=== PATIENT | male | born 1940 | race Caucasian/White ===

== ENCOUNTER 2022-06-20 20:28 | Observation (INO) ==
--- NOTE | 2022-06-20 20:51 | DR.GENAD ---
HPI Time Seen Time Seen by Provider: 06/20/22 20:51 HPI Comment HPI Comment: PATIENT IS 81YR OLD MALE IN ER WITH FAMILY MEMBERS COMPLAINING OF MENTAL STATUS CHANGES THAT STARTED TODAY. PATIENT HAVE HISTORY OF BRAIN CA COMPLITED RADIATION THERAPY IN MARCH. HAVING ABDOMINAL PAIN ON AND OFF THAT IS SEVERE TODAY. NO FEVER, VOMITING OR DIARRHEA. PATIENT IS HAD BM TODAY. Complaint/Symptoms Chief Complaint Doctors Comments: MENTAL STATUS CHANGES TIMES FEW HOURS. HE IS CONFUSED AND AGITATED. COVID-19 Coronavirus risk:travel/contact w/high risk person: No Has patient experienced Coronavirus symptoms: No Nurses notes reviewed Nurses Notes Review: Yes PMH PMH Past Surgical History: Yes ROS Review of Systems Constitutional: Weakness, Fatigue, Loss of Appetite and Other (INSOMNIA.); negative Fever Eyes: No Symptoms Reported; negative See HPI ENTM: No Symptoms Reported; negative Nose Discharge or Nose Congestion Respiratoy: No Symptoms Reported; negative Moist Cough, Short of Breath or Wheezing Cardiovascular: No Symptoms Reported; negative Chest Pain Gastrointestinal/Abdominal: negative Abdominal Pain, Diarrhea or Vomiting Genitourinary: No Symptoms Reported; negative Dysuria Neurological: Headache; negative Dizziness Musculoskeletal: No Symptoms Reported Integumentary: No Symptoms Reported; negative Rash or Juandice Hematologic/Lymphatic: No Symptoms Reported and Easy Bruising Endocrine: No Symptoms Reported; negative Increased Thirst or Increased Urine Psychiatric: Other (AGITATED.) All Other Systems: Reviewed and Negative PE Vital Signs Vitals: Temperature 98.5 F Pulse Rate 99 Respiratory Rate 33 Blood Pressure 208/97 O2 Sat by Pulse Oximetry 100 General Limitations: Altered Mental Status General Appearance: Alert and In No Apparent Distress Head Head Exam: Normal Inspection and Atraumatic Eyes Eye exam: Normal Appearance and PERRL; negative Scleral Icterus or Conjunctival Injection ENT ENT Exam: Normal Exam, Normal Oropharynx, Normal External Ear Exam and TM's Normal Bilaterally External Ear Exam: Normal External Inspection; negative Mastoid Tenderness TM/Canal Exam: Bilateral: Normal Nose Exam: Normal Nose Exam Mouth Exam: negative Lip Swelling or Tongue Swelling Throat Exam: Normal Inspection, Tonsillar Erythema, Tonsillomegaly and L Peritonsillar Mass Neck Neck Exam: Normal Inspection and Trachea Midline; negative Tenderness Chest Chest Inspection: Normal Inspection and Symmetric Chest Wall Rise; negative Tenderness Respiratory Respiratory Exam: Normal Lung Sounds Bilat; negative Accessory Muscle Use, Chest Wall Tenderness or Respiratory Distress Respiratory Exam: Bilateral: Rhonchi Cardiovascular Cardiovascular Exam: Regular Rate, Normal Rhythm and Normal Heart Sounds; negative Systolic Murmur or Diastolic Murmur Abdominal Exam Abdominal Exam: Normal Inspection, Normal Bowel Sounds and Soft; negative Tenderness Extremities Extremities Exam: Normal Inspection and Normal Capillary Refill Back Back Exam: Normal Inspection; negative (R) CVA Tenderness or (L) CVA Tenderness Neurologic Neurological Exam: Alert; negative Oriented X3 (CONFUSED.) or Motor Sensory Deficit Psychiatric Psychiatric Exam: Agitated Skin Skin Exam: Intact MDM Additional Information Additional Information Obtained From: Family Differential Diagnosis Differential Diagnosis: AMS, HYPERTENSION, INSOMNIA, AGITATION, HISTORY BRAIN CANCER. COURSE Treatment Treatment: SEE ORDERS DONE WHILE PATIENT WAS IN ER. Consultation Consultation Comments: DISCUSSED PATIENT WITH DR. REDMAN. HE WILL ADMIT PATIENT. Education/Counseling Education/Counseling: Patient and Family Educated On: Diagnosis ROR Labs Reviewed Laboratory Results Reviewed?: Yes Result Diagrams: 06/22/22 04:38 06/22/22 10:40 Laboratory: 06/20/22 21:50 Blood Blood Culture - Preliminary 06/20/22 21:06 Blood Blood Culture - Preliminary WBC 7.9 X10^3/uL (3.6-10.0) 06/20/22 21:06 RBC 4.24 X10^6/uL (4.7-6.0) L 06/20/22 21:06 Hgb 13.3 g/dL (13.5-18.0) L 06/20/22 21:06 Hct 38.2 % (42.0-54.0) L 06/20/22 21:06 MCV 89.9 fL (80.0-100.0) 06/20/22 21:06 MCH 31.4 pg (27.0-34.0) 06/20/22 21:06 MCHC 34.9 g/dL (33.0-35.0) 06/20/22 21:06 RDW 16.4 % (11.6-16.5) 06/20/22 21:06 Plt Count 163 X10^3/uL (150.0-450.0) 06/20/22 21:06 MPV 7.2 fL (7.4-11.0) L 06/20/22 21:06 Neut % (Auto) 67.7 % (42.0-75.0) 06/20/22 21:06 Lymph % (Auto) 19.4 % (21.0-51.0) L 06/20/22 21:06 [place] % (Auto) 10.9 % (0.0-13.0) 06/20/22 21:06 Eos % (Auto) 1.3 % (0.9-2.9) 06/20/22 21:06 Baso % (Auto) 0.7 % (0.2-1.0) 06/20/22 21:06 Neut # (Auto) 5.4 x10^3/uL (2.2-4.8) H 06/20/22 21:06 Lymph # (Auto) 1.5 X10^3/uL (1.3-2.9) 06/20/22 21:06 Donley # (Auto) 0.9 x10^3/uL (0.3-0.8) H 06/20/22 21:06 Eos # (Auto) 0.1 x10^3/uL (0.0-0.2) 06/20/22 21:06 Baso # (Auto) 0.1 X10^3/uL (0.0-0.1) 06/20/22 21:06 Absolute Nucleated RBC 0.0 /100WBC 06/20/22 21:06 PT 14.9 SECONDS (11.8-14.3) 06/20/22 21:06 INR Target Range - 06/20/22 21:06 INR 1.20 (0.8-1.3) 06/20/22 21:06 APTT 29.0 SECONDS (22.9-36.5) 06/20/22 21:06 PTT Comment - 06/20/22 21:06 Sodium 135 mmol/L (136-145) L 06/20/22 21:06 Corrected Sodium TNP 06/20/22 21:06 Potassium 3.5 mmol/L (3.5-5.1) 06/20/22 21:06 Chloride 100 mmol/L (98-107) 06/20/22 21:06 Carbon Dioxide 26.8 mmol/L (21-32) 06/20/22 21:06 BUN 6 mg/dL (7-18) L 06/20/22 21:06 Creatinine 1.01 mg/dL (0.70-1.30) 06/20/22 21:06 Est GFR (MDRD) Af Amer > 60 (>60) 06/20/22 21:06 Est GFR (MDRD) Non-Af > 60 (>60) 06/20/22 21:06 Glucose 102 mg/dL (65-99) H 06/20/22 21:06 Calcium 8.4 mg/dL (8.5-10.1) L 06/20/22 21:06 Corrected Calcium TNP 06/20/22 21:06 Total Bilirubin 0.80 mg/dL (0.2-1.0) 06/20/22 21:06 AST 18 Units/L (15-37) 06/20/22 21:06 ALT 16 Units/L (12-78) 06/20/22 21:06 Alkaline Phosphatase 81 Units/L (46-116) 06/20/22 21:06 Ammonia < 10 umol/L (11-32) L 06/20/22 21:06 Creatine Kinase 135 Units/L (39-308) 06/20/22 21:06 Troponin I High Sens 9.5 ng/L (4.0-60.0) 06/20/22 21:06 Total Protein 6.4 g/dL (6.4-8.2) 06/20/22 21:06 Albumin 3.7 g/dL (3.4-5.0) 06/20/22 21:06 Globulin 2.7 g/dL (2.5-4.5) 06/20/22 21:06 Albumin/Globulin Ratio 1.4 Ratio (1.1-2.1) 06/20/22 21:06 Specimen Type Clean catch urine 06/20/22 21:17 Urine Color Pale yellow (YELLOW) 06/20/22 21:17 Urine Appearance Clear (CLEAR) 06/20/22 21:17 Urine pH 7.0 (5.0 - 8.0) 06/20/22 21:17 Ur Specific [place] 1.010 (1.000-1.030) 06/20/22 21:17 Urine Protein Negative (NEGATIVE) 06/20/22 21:17 Urine Glucose (UA) Negative (NEGATIVE) 06/20/22 21:17 Urine Ketones Negative (NEGATIVE) 06/20/22 21:17 Urine Blood Negative (NEGATIVE) 06/20/22 21:17 Urine Nitrite Negative (NEGATIVE) 06/20/22 21:17 Urine Bilirubin Negative (NEGATIVE) 06/20/22 21:17 Urine Urobilinogen 1+ (NORMAL) 06/20/22 21:17 Ur Leukocyte Esterase Negative (NEGATIVE) 06/20/22 21:17 Urine RBC None seen /HPF (0-3) 06/20/22 21:17 Urine WBC None seen /HPF (0-5) 06/20/22 21:17 Ur Squamous Epith Cells Rare /HPF (NEGATIVE) 06/20/22 21:17 Urine Bacteria Negative /HPF (NEGATIVE) 06/20/22 21:17 Ur Culture Indicated? No/not indicated 06/20/22 21:17 Urine Opiates Screen Negative (NEG=<300) 06/20/22 21:17 Urine Methadone Screen Negative (NEG=<300) 06/20/22 21:17 Ur Barbiturates Screen Negative (NEG=<200) 06/20/22 21:17 Ur Phencyclidine Scrn Negative (NEG=<25) 06/20/22 21:17 Ur Amphetamines Screen Negative (NEG=<1000) 06/20/22 21:17 U Benzodiazepines Scrn Positive (NEG=<200) 06/20/22 21:17 Urine Cocaine Screen Negative (NEG=<300) 06/20/22 21:17 U Marijuana (THC) Screen Negative (NEG=<50) 06/20/22 21:17 Ethyl Alcohol mg/dL Cancelled 06/20/22 21:06 XRAY XRAY Interpreted by: Radiologist (REPORT NOTED) and Self Opioid Opioid Risk Tool Total: 0 Total Score Risk Category: Low Risk Copyright: Marko SHELLEY predicting aberrant behaviors Discharge Plan Diagnosis Discharge Problem: Altered mental state, Hypertension, Insomnia, Agitation, History of brain cancer Discharge Plan Patient Disposition: HOME, SELF-CARE Condition: Stable Orders to Discharge Patient Discharge Orders: Discharge (Routine); Ordered 06/22/22 Ordered By: ALMAZ RIVERA
[2022-06-20 20:59] VITALS: BMI 24.3
[2022-06-20 21:19] LABS: BASOPHILS # (AUTO) 0.1 X10^3/uL (0.0-0.1); BASOPHILS % (AUTO) 0.7 % (0.2-1.0); EOSINOPHILS # (AUTO) 0.1 x10^3/uL (0.0-0.2); EOSINOPHILS % (AUTO) 1.3 % (0.9-2.9); HEMATOCRIT 38.2 % (42.0-54.0); HEMOGLOBIN 13.3 g/dL (13.5-18.0); LYMPHOCYTES # (AUTO) 1.5 X10^3/uL (1.3-2.9); LYMPHOCYTES % (AUTO) 19.4 % (21.0-51.0); MEAN CORPUSCULAR HEMOGLOBIN 31.4 pg (27.0-34.0); MEAN CORPUSCULAR HGB CONC 34.9 g/dL (33.0-35.0); MEAN CORPUSCULAR VOLUME 89.9 fL (80.0-100.0); MEAN PLATELET VOLUME 7.2 fL (7.4-11.0); MONOCYTES # (AUTO) 0.9 x10^3/uL (0.3-0.8); MONOCYTES % (AUTO) 10.9 % (0.0-13.0); NEUTROPHILS # (AUTO) 5.4 x10^3/uL (2.2-4.8); NEUTROPHILS % (AUTO) 67.7 % (42.0-75.0); RED BLOOD COUNT 4.24 X10^6/uL (4.7-6.0); RED CELL DISTRIBUTION WIDTH 16.4 % (11.6-16.5); WHITE BLOOD COUNT 7.9 X10^3/uL (3.6-10.0)
[2022-06-20 21:27] LABS: BILIRUBIN,URINE NEGATIVE (NEGATIVE); BLOOD/HEMOGLOBIN,URINE NEGATIVE (NEGATIVE); GLUCOSE, URINE NEGATIVE (NEGATIVE); KETONES,URINE NEGATIVE (NEGATIVE); LEUKOCYTE ESTERASE ,URINE NEGATIVE (NEGATIVE); NITRITES,URINE NEGATIVE (NEGATIVE); PROTEIN,URINE NEGATIVE (NEGATIVE); UROBILINOGEN,URINE 1+ (NORMAL)
[2022-06-20 21:32] LABS: APPEARANCE,URINE CLEAR (CLEAR); COLOR,URINE PALE YELLOW (YELLOW)
[2022-06-20 21:33] LABS: BACTERIA,URINE NEGATIVE /HPF (NEGATIVE); RBC,URINE NONE SEEN /HPF (0-3); SQUAMOUS EPITHELIAL CELL,UR RARE /HPF (NEGATIVE)
[2022-06-20 21:34] LABS: ALANINE AMINOTRANSFERASE 16 Units/L (12-78); ALBUMIN 3.7 g/dL (3.4-5.0); ALKALINE PHOSPHATASE 81 Units/L (46-116); ASPARTATE AMINO TRANSFERASE 18 Units/L (15-37); BLOOD UREA NITROGEN 6 mg/dL (7-18); CALCIUM 8.4 mg/dL (8.5-10.1); CARBON DIOXIDE 26.8 mmol/L (21-32); CHLORIDE 100 mmol/L (98-107); CREATINE KINASE 135 Units/L (39-308); CREATININE 1.01 mg/dL (0.70-1.30); SODIUM 135 mmol/L (136-145); TOTAL PROTEIN 6.4 g/dL (6.4-8.2); eGFR NON BLACK RACES > 60 (>60)
--- NOTE | 2022-06-20 21:54 | CT ---
[id number] ago began having face, arm, leg weakness. Family states has a history of anxiety that presents with these symptoms. Family states he has an upset stomach. March pt had full brain radiation due to brain cancer.STUDYBRAIN W/O CONCOMPARISONMRI brain dated October 29, 2018 report, no images available for comparison at this time.TECHNIQUECT scan of the brain was obtained from skull base to vertex without contrast. Dose reduction techniques were utilized.Contrast: NoneFINDINGSThere is diffuse cerebral and cerebellar volume loss. There is a small rounded hyperdensity seen within the right posterior parietal lobe noted medially measuring approximately 4.6 mm. This may represent mineralization or dystrophic calcification. Less likely this could represent a small focus of intraparenchymal hemorrhage. This is less favored. There is mild hypodensity in the hemispheric white matter. While these are nonspecific findings, this most likely represents microvascular ischemic disease changes. There is no evidence of intracranial hemorrhage or mass-effect. No extra-axial fluid collections are identified.There are extensive atherosclerotic changes noted of the cavernous carotid arteriesand distal vertebral arteries.Skull base and calvarium are intact. Paranasal sinuses reveals a retention cyst versus polyp within the right maxillary sinus.IMPRESSIONSmall focus of hyperdensity within the right of midline parietal lobe measuring approximately 4.6 mm. This could represent dystrophic calcifications or mineralization from a previously treated small meningioma or calcification from a cavernous malformation versus a minimal amount of intraparenchymal hemorrhage (this is less favored). No mention of this finding was made on the previous MRI report dated October 29, 2018. Diffuse generalized cerebral atrophy. Microvascular ischemic disease changes.Electronically signed by: Soraya Reid (Jun 20, 2022 21:52:37)
--- NOTE | 2022-06-20 21:55 | RAD ---
[id number] ago began having face, arm, leg weakness. Family states has a history of anxiety that presents with these symptoms. family gave patient a 2.25mg xanax that relieved symptoms. Family states he has an upset stomach. March pt had TRUNCATED ...STUDYCHEST, 1 VIEWCOMPARISONNone.TECHNIQUEA single frontal view of the chest was obtained.FINDINGSThere are multiple EKG leads and wires seen overlying the patient. There is mild tortuosity to the descending thoracic aorta. The heart is normal in size. There is no focal infiltrate. There is no effusion. There is no pneumothorax. The osseous structures are intact.IMPRESSIONNo focal infiltrate or effusion.Electronically signed by: Soraya Reid (Jun 20, 2022 21:54:08)
--- NOTE | 2022-06-20 22:10 | CT ---
[id number] ago began having face, arm, leg weakness. Family states has a history of anxiety that presents with these symptoms. Family states he has an upset stomach. March had full brain radiation due to brain cancer.STUDYABDOMEN/PELVIS W/O CONCOMPARISONNoneTECHNIQUENon-contrasted axial CT images of the abdomen and pelvis were obtained and reformatted into coronal and sagittal planes for further evaluation.Radiation dose: 297.13 mGy-cm total DLPFINDINGSLung bases are clear.Tiny sliding type hiatal hernia.Stomach appears normal.Solid visceral organs of the upper abdomen are unremarkable.Gallbladder appears normal.No intra or extrahepatic biliary dilatation.Unremarkable appearance of the kidneys.No hydronephrosis, hydroureter or ureteral calculus.Unremarkable appearance of the urinary bladder.Colonic diverticulosis without diverticulitis.Otherwise, unremarkable appearance of the small and large bowel.Reproductive structures are unremarkable.No evidence of acute appendicitis.No pneumoperitoneum.No significant fluid collection.No adenopathy.No acute osseous abnormality.Multilevel [id number]-[id number] degenerative disc and joint changes.IMPRESSION1. No acute intra-abdominal abnormality detected.2. Colonic diverticulosis without diverticulitis.3. Tiny sliding type hiatal hernia.Electronically signed by: Dejon Concepcion (Jun 20, 2022 22:08:41)
[2022-06-20] MEDS ORDERED: ATIVAN INJ 2 MG VIAL IVP ONE (22:56)
[2022-06-20] MEDS ORDERED: APRESOLINE INJ 20 MG VIAL IVP ONE (22:56)
[2022-06-20] MEDS ORDERED: APRESOLINE INJ 20 MG VIAL ONE (22:58)
[2022-06-20] MEDS ORDERED: ATIVAN INJ 2 MG VIAL ONE (22:58)
[2022-06-20] MEDS ORDERED: FLONASE NASAL SPRAY ENOSTRIL SCH (23:45)
[2022-06-20] MEDS ORDERED: FLONASE NASAL SPRAY ENOSTRIL ONE (23:49)
[2022-06-21] MEDS: NS 1,000 ML IV 1,000 ML IV SCH ×2 (00:40→14:18)
[2022-06-21 05:29] LABS: BASOPHILS % (AUTO) 0.2 % (0.2-1.0); EOSINOPHILS # (AUTO) 0.1 x10^3/uL (0.0-0.2); EOSINOPHILS % (AUTO) 0.6 % (0.9-2.9); HEMATOCRIT 38.3 % (42.0-54.0); HEMOGLOBIN 13.5 g/dL (13.5-18.0); INR 1.22 (0.8-1.3); LYMPHOCYTES # (AUTO) 1.2 X10^3/uL (1.3-2.9); LYMPHOCYTES % (AUTO) 12.2 % (21.0-51.0); MEAN CORPUSCULAR HEMOGLOBIN 31.2 pg (27.0-34.0); MEAN CORPUSCULAR HGB CONC 35.3 g/dL (33.0-35.0); MEAN CORPUSCULAR VOLUME 88.4 fL (80.0-100.0); MEAN PLATELET VOLUME 7.5 fL (7.4-11.0); MONOCYTES % (AUTO) 10.7 % (0.0-13.0); NEUTROPHILS # (AUTO) 7.3 x10^3/uL (2.2-4.8); NEUTROPHILS % (AUTO) 76.3 % (42.0-75.0); RED BLOOD COUNT 4.34 X10^6/uL (4.7-6.0); RED CELL DISTRIBUTION WIDTH 16.2 % (11.6-16.5); WHITE BLOOD COUNT 9.5 X10^3/uL (3.6-10.0)
[2022-06-21] MEDS ORDERED: NORCO 5/325 MG TAB PO PRN (05:32)
[2022-06-21 05:45] LABS: ALANINE AMINOTRANSFERASE 15 Units/L (12-78); ALBUMIN 3.5 g/dL (3.4-5.0); ALKALINE PHOSPHATASE 75 Units/L (46-116); ASPARTATE AMINO TRANSFERASE 20 Units/L (15-37); BLOOD UREA NITROGEN 4 mg/dL (7-18); CALCIUM 8.4 mg/dL (8.5-10.1); CARBON DIOXIDE 26.4 mmol/L (21-32); CHLORIDE 100 mmol/L (98-107); CREATININE 0.81 mg/dL (0.70-1.30); MAGNESIUM 1.7 mg/dL (2.0-2.9); SODIUM 134 mmol/L (136-145); TOTAL PROTEIN 6.1 g/dL (6.4-8.2); eGFR NON BLACK RACES > 60 (>60)
[2022-06-21] MEDS ORDERED: K-RIDER 10 MEQ/NS 100 ML 10 MEQ/100 ML BAG IV PRN (07:50)
[2022-06-21] MEDS ORDERED: POTASSIUM CHLORIDE LIQ 20 MEQ UDC PO PRN (07:50)
[2022-06-21] MEDS ORDERED: POTASSIUM CHL 60 MEQ/NS 0.45% 500 ML IV PRN (07:50)
[2022-06-21] MEDS ORDERED: POTASSIUM CHL 40 MEQ/NS 0.45% 500 ML IV PRN (07:50)
[2022-06-21] MEDS ORDERED: K-DUR TAB 20 MEQ PO PRN (07:50)
[2022-06-21] MEDS ORDERED: MICRO K EXTEN CAP 10 MEQ PO PRN (07:50)
[2022-06-21] MEDS ORDERED: KLOR-CON PO PRN (07:50)
[2022-06-21 08:16] LABS: AMYLASE 55 Units/L (25-115); LIPASE 159 Units/L (73-393)
[2022-06-21] MEDS ORDERED: ZOFRAN INJ 4 MG VIAL IVP PRN (08:22)
[2022-06-21] MEDS: PROTONIX INJ 40 MG VIAL IVP SCH (08:35)
[2022-06-21] MEDS: MAGNESIUM SULFATE 1 GRAM/100 mL PREMIX 1 G/100 ML BAG IV PRN ×2 (08:35→11:36)
[2022-06-21] MEDS ORDERED: ATIVAN INJ 2 MG VIAL IVP ONE (08:49)
[2022-06-21] MEDS: SYNTHROID 25 mcg TAB PO SCH (09:21)
[2022-06-21] MEDS: EFFEXOR XR 75 MG CAP 24-HR PO SCH (09:21)
[2022-06-21] MEDS: LOVENOX INJ 40 MG SYR SC SCH (10:35)
--- NOTE | 2022-06-21 13:27 | MRI ---
HISTORYAMS, HX OF BRAIN TUMORAltered mental status.[NONCONTRAST] MRI EXAMINATION OF THE BRAIN.Technique: Multiplanar and multi-sequence MRI of the brain was obtained utilizing standard protocol. Sagittal and axial T1 weighted images were obtained. Axial T2 and flair weighted images were performed as well. Axial diffusion weighted and ADC trace mapping was performed.Comparison is made with the prior head CT examination dated June 20, 2022.Findings:At least 4 abnormal subcentimeter bilateral regions of diminished signal/hypointensity with associated blooming artifact are seen within the cerebellar hemispheres bilaterally with 2 additional foci within the right parietal lobe; the larger hypodense focus again seen in the midline. The subcentimeter 'lesions' could reflect foci of amyloid angiopathy, hemorrhagic micrometastasis, or possibly small punctate hemorrhages. This probably accounts for this patient's altered mental status but should be followed up with MR imaging with IV contrast when medically feasible. Please correlate for any evidence or history of a primary carcinoma/malignancy, such as thyroid malignancy, renal cell carcinoma, melanoma, etc. The midline structures are unremarkable. [There is no evidence for cerebellar tonsillar ectopia]. Otherwise, there is [moderate] sulcal and cisternal prominence as well as scattered foci of periventricular white matter T2 signal alteration seen in the high and mid convexities, which is [not] out of portion to patient's stated age. No significant midline shift or herniation syndrome is observed. [No extra-axial fluid collections are observed]. The ventricular system [appears symmetric and nondilated]. [The CP angle is normal in its appearance without brainstem mass or evidence for acoustic neuroma]. The flow voids on both T1 and T2 weighted imaging [are unremarkable]. Evaluation of the diffusion weighted imaging [does not demonstrate abnormal signal characteristics to suggest acute ischemic change]. The extracranial structures [are unremarkable]. The paranasal sinuses [are clear]. The mastoid air cells are [also relatively clear on this examination].IMPRESSION: The examination is abnormal.Subtle vasogenic edema is observed within the right cerebellar hemisphere which corresponds to the T2 star findings described below.At least 4 abnormal subcentimeter bilateral regions of diminished signal/hypointensity on GRE/T2 star sequencing (with associated blooming artifact on DWI sequencing) are seen focally within the cerebellar hemispheres bilaterally with 2 additional hypodense foci located within the right parietal lobe; the larger hypointense parietal focus is again seen in the midline (as discussed on the recent head CT exam).The subcentimeter 'lesions' could reflect foci of amyloid angiopathy, hemorrhagic micrometastasis, or possibly small punctate hemorrhages. This probably accounts for this patient's altered mental status but should be followed up with MR imaging with IV contrast when medically feasible.Please correlate for any evidence or history of a primary carcinoma/malignancy, such as thyroid malignancy, renal cell carcinoma, melanoma, etc.Electronically signed by: NIXON GARCIA III (Jun 21, 2022 13:26:27)
[2022-06-21] MEDS: XANAX PO SCH ×2 (14:27→21:02)
--- NOTE | 2022-06-21 18:29 | DR.H&P ---
H&P - History & Physical for Day of: H&P Date: 06/20/22 - Chief Complaint Chief Complaint: AMS - History of Present Illness History of Present Illness: PATIENT IS 81YR OLD MALE IN ER WITH FAMILY MEMBERS COMPLAINING OF MENTAL STATUS CHANGES THAT STARTED TODAY. PATIENT HAVE HISTORY OF BRAIN CA COMPLITED RADIATION THERAPY IN MARCH. HAVING ABDOMINAL PAIN ON AND OFF THAT IS SEVERE TODAY. NO FEVER, VOMITING OR DIARRHEA. PATIENT IS HAD BM TODA Y. - Past Medical History Past Medical History: Anxiety - Past Surgical History Surgical History: Abdominal Surgery, Tonsillectomy, Other - Social History Does patient currently use any type of tobacco product: No Have you used tobacco products in the last 12 months: No Type of Tobacco Use: None Does any household member use tobacco: No Alcohol Use: None - Medications Home Medications: No Known Drug Allergies [NKDA] Allergy (Verified 06/20/22 21:28) CONTINUE taking the following medications alprazolam 0.25 mg tablet 0.25 mg PO TID 06/20/22 [History] levothyroxine 25 mcg tablet 25 mcg PO QDAY 06/20/22 [History] ondansetron HCl 8 mg tablet 8 mg PO Q8H PRN nausea 06/20/22 [History] pantoprazole 40 mg tablet,delayed release 40 mg PO BID 06/20/22 [History] ropinirole 0.5 mg tablet 0.5 mg PO QPM 06/20/22 [History] venlafaxine 75 mg capsule,extended release 24 hr 75 mg PO QDAY 06/20/22 [History] - Physical Exam Vital Signs: Temperature 98.2 F Pulse Rate 64 Respiratory Rate 18 Blood Pressure [Left Arm] 152/78 Blood Pressure 125/68 O2 Sat by Pulse Oximetry 98 - Allergies Allergies/Adverse Reactions: Allergies Allergy/AdvReac Type Severity Reaction Status Date / Time No Known Drug Allergies Allergy Verified 06/20/22 21:28 [NKDA]
[2022-06-21] MEDS ORDERED: REQUIP PO SCH (21:00)
[2022-06-22] MEDS: NS 1,000 ML IV 1,000 ML IV SCH (01:43)
[2022-06-22] MEDS: XANAX PO SCH (05:15)
[2022-06-22 05:23] LABS: BASOPHILS % (AUTO) 0.3 % (0.2-1.0); EOSINOPHILS # (AUTO) 0.1 x10^3/uL (0.0-0.2); EOSINOPHILS % (AUTO) 1.8 % (0.9-2.9); HEMOGLOBIN 12.5 g/dL (13.5-18.0); LYMPHOCYTES # (AUTO) 1.1 X10^3/uL (1.3-2.9); LYMPHOCYTES % (AUTO) 21.9 % (21.0-51.0); MEAN CORPUSCULAR HEMOGLOBIN 31.2 pg (27.0-34.0); MEAN CORPUSCULAR HGB CONC 34.6 g/dL (33.0-35.0); MEAN CORPUSCULAR VOLUME 90.3 fL (80.0-100.0); MEAN PLATELET VOLUME 7.5 fL (7.4-11.0); MONOCYTES # (AUTO) 0.7 x10^3/uL (0.3-0.8); MONOCYTES % (AUTO) 13.4 % (0.0-13.0); NEUTROPHILS # (AUTO) 3.2 x10^3/uL (2.2-4.8); NEUTROPHILS % (AUTO) 62.6 % (42.0-75.0); RED BLOOD COUNT 3.99 X10^6/uL (4.7-6.0); RED CELL DISTRIBUTION WIDTH 16.9 % (11.6-16.5); WHITE BLOOD COUNT 5.1 X10^3/uL (3.6-10.0)
[2022-06-22 05:36] LABS: ALANINE AMINOTRANSFERASE 14 Units/L (12-78); ALBUMIN 2.9 g/dL (3.4-5.0); ALKALINE PHOSPHATASE 65 Units/L (46-116); ASPARTATE AMINO TRANSFERASE 18 Units/L (15-37); BLOOD UREA NITROGEN 3 mg/dL (7-18); CALCIUM 7.9 mg/dL (8.5-10.1); CARBON DIOXIDE 28.2 mmol/L (21-32); CHLORIDE 104 mmol/L (98-107); COR CA(FOR HYPOALB) 8.8 mg/dL (8.5-10.1); MAGNESIUM 2.2 mg/dL (2.0-2.9); SODIUM 138 mmol/L (136-145); TOTAL PROTEIN 5.3 g/dL (6.4-8.2); eGFR NON BLACK RACES > 60 (>60)
[2022-06-22] MEDS ORDERED: XANAX PO ONE (07:58)
[2022-06-22] MEDS: SYNTHROID 25 mcg TAB PO SCH (08:16)
[2022-06-22] MEDS: EFFEXOR XR 75 MG CAP 24-HR PO SCH (08:20)
[2022-06-22] MEDS: PROTONIX INJ 40 MG VIAL IVP SCH (08:20)
[2022-06-22] MEDS: LOVENOX INJ 40 MG SYR SC SCH (09:02)
[2022-06-22 11:07] VITALS: BP 133/65
== END 2022-06-22 10:30 | disposition home or self-care (01) ==
LOC: ICU 20:28 → ER 20:28 → ICU 06-21 00:04
PROVIDERS: ADMIT Internal Medicine; ATTEND Internal Medicine
DX: I10 Essential (primary) hypertension; R41.82 Altered mental status, unspecified; Z85.841 Personal history of malignant neoplasm of brain; R45.1 Restlessness and agitation; G47.00 Insomnia, unspecified; F41.8 Other specified anxiety disorders; K44.9 Diaphragmatic hernia without obstruction or gangrene; R10.84 Generalized abdominal pain; K57.30 Diverticulosis of large intestine without perforation or abscess without bleeding